=== PATIENT | male | born 1995 | race African-American/Black ===

== ENCOUNTER 2017-07-06 08:59 | Emergency (ER) | payer SELFPAY ==
[~2017-07-06] VITALS: Ht 170.2 cm; Wt 143.0 kg
[~2017-07-06 08:59] MED LIST: ADDERALL5 MG OR; AMOXICILLIN500 MG OR; AMOXICILLIN875 MG OR; ASMANEX 120220 MCG IN; BACTRIM DS1 TAB PO; CEPHALEXIN500 MG PO; CHLORASEPTIC1.4 % MT; CIPROFLOXACN500 MG PO; FLONASE NASAL50 MCG; FLUZONE SPLT1 M1 IM; GARDASIL IM; HAVRIX720 UNI1 IM; HYDROCHLOROT12.5 MG PO; HYDROCHLOROT25 MG PO; KETOCONAZOLE2 % EX; LISINOPRIL5 MG PO; LOMOTIL2.5 MG PO; LOTRISONE EX; MENACTRA PO; MOTRIN400 MG/TAB PO; MUCINEX600 MG PO; NAPROSYN500 MG OR; NAPROSYN500 MG PO; Q-DRYL25 MG PO; RASH CREAM; ROBITUSSIN AC10 ML PO; SINGULAIR5 MG OR; VARIVAX SC; VENTOLIN HFA IN; VYVANSE40 MG OR; VYVANSE70 MG PO; ZOVIRAX200 MG PO
[2017-07-06 09:35] VITALS: BP 122/76
== END 2017-07-06 09:35 | disposition home or self-care (01) | DRG 563 ==
LOC: ED 08:59
DX: S92.132A Displaced fracture of posterior process of left talus, initial encounter for closed fracture (principal); X58.XXXA Exposure to other specified factors, initial encounter; Y93.67 Activity, basketball; Y92.007 Garden or yard of unspecified non-institutional (private) residence as the place of occurrence of the external cause

== ENCOUNTER 2020-11-05 14:01 | Emergency (ER) | payer SELFPAY ==
[~2020-11-05] VITALS: Ht 170.2 cm; Wt 163.6 kg
[2020-11-05 14:07] VITALS: BP 166/98
== END 2020-11-05 15:55 | disposition home or self-care (01) | DRG 556 ==
LOC: ED 14:01
DX: M25.562 Pain in left knee (principal); X50.0XXA Overexertion from strenuous movement or load, initial encounter; Y93.83 Activity, rough housing and horseplay
CPT/HCPCS: L1830

== ENCOUNTER 2021-01-06 08:16 | Emergency (ER) | payer SELFPAY ==
[~2021-01-06] VITALS: Ht 172.7 cm; Wt 171.6 kg
[2021-01-06] MEDS ORDERED: FLONASE AL50 MCG/ACT (09:33)
[2021-01-06] MEDS ORDERED: ZPAK PO (09:33)
[2021-01-06 09:47] VITALS: BP 163/99
== END 2021-01-06 09:52 | disposition home or self-care (01) | DRG 153 ==
LOC: ED 08:16
DX: J01.90 Acute sinusitis, unspecified (principal); Z20.822 Contact with and (suspected) exposure to COVID-19